=== PATIENT | female | born 1965 | race African-American/Black ===

== ENCOUNTER 2023-03-17 09:39 | Emergency (ER) | payer OTHER, SELFPAY ==
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
[2023-03-17 09:58] VITALS: BP 153/94; PULSE 62; RESP 16; TEMP 35.9; O2SAT 99
== END 2023-03-17 10:59 | disposition home or self-care (01) ==
PROVIDERS: Emergency Provider Nurse Practitioner; PCP Emergency Medicine
DX: M54.2 Cervicalgia (principal); I50.9 Heart failure, unspecified
CPT/HCPCS: 99213; G0463

== ENCOUNTER 2024-12-19 10:06 | Emergency (ER) | payer BC, SELFPAY ==
--- NOTE | ~2024-12-19 | XR_ITS ---
X-rays right ankle X-rays right foot Indication: Swelling and pain Comparison: None Technique: 4 views right ankle, 4 views right foot Findings/Impression: Right ankle: 1. No fracture or dislocation right ankle. 2. Joint effusion. 3. Lateral malleolus soft tissue swelling. Right foot: 1. No fracture, dislocation, or other acute abnormality identified. Reviewed, dictated and finalized at location R.
--- NOTE | 2024-12-19 10:10 | ED_ITS ---
HPI - General Adult General Chief complaint: Extremity Problem,Nontraumatic Stated complaint: pain in right ankle Time Seen by Provider: 12/19/24 10:10 Source: patient Mode of arrival: ambulatory Limitations: no limitations History of Present Illness HPI narrative: 59-year-old female patient presents to the [facility] with complaints of pain to the right ankle for the past 4 days. Denies any recent injury or fall that she is aware of. Patient states the ankle has been swelling, it is painful to walk on and rates her pain about 6/10. Patient states last night she did notice that her toes were feeling tingling and feeling numb. Patient does have history of CHF, high blood pressure but states she did is not good about taking her Lasix every day. Patient is an active smoker. Patient does have history of gout but does take allopurinol daily Related Data Home Medications ?Medication ?Instructions ?Recorded ?Confirmed ?Last Taken ?Type atorvastatin 20 mg tablet mg 03/17/23 Unknown History carvedilol 25 mg tablet mg 03/17/23 Unknown History furosemide 20 mg tablet mg 03/17/23 Unknown History lisinopril 40 mg tablet mg 03/17/23 Unknown History allopurinol 100 mg tablet mg 12/19/24 Unknown History Allergies Allergy/AdvReac Type Severity Reaction Status Date / Time Penicillins Allergy Severe Dyspnea / Verified 12/19/24 10:14 SOB Review of Systems Review of Systems: CONSTITUTIONAL: Denies fever, chills, or sweats. EYES: Denies visual changes, redness, or discharge. ENT: Denies rhinorrhea, congestion, sore throat, or otalgia. CARDIOVASCULAR: Denies chest pain, palpitations, or edema. RESPIRATORY: Denies cough or dyspnea. GASTROINTESTINAL: Denies abdominal pain, nausea, vomiting, or diarrhea. GENITOURINARY: Denies dysuria or hematuria. SKIN: Denies rash or itching. MUSCULOSKELETAL: Denies back pain, joint pain, or myalgia. Positive right ankle pain x4 days NEUROLOGIC: Denies headache, numbness, or weakness. PSYCHIATRIC: Denies anxiety or depression. [facility] Past Medical History Medical History (Updated 12/19/24 @ 11:28 by JEREMIAH Delgado) Gout Asthma CHF (congestive heart failure) Hypertension Surgical History Surgical History (Updated 12/19/24 @ 10:23 by JEREMIAH Delgado) History of bilateral knee replacement H/O tubal ligation Comments At the time of my signature I agree with nursing past medical history, surgical, social, and family history. There is no relevant family history pertinent to the presenting complaint. Exam Narrative: GENERAL: Well-appearing, well-nourished, and in no acute distress. HEAD: Normocephalic, atraumatic. EYES: PERRLA and EOMI. ENT: Nares clear, no rhinorrhea or epistaxis. Mucous membranes moist. NECK: Supple. No lymphadenopathy CHEST: Clear to auscultation. No respiratory distress. HEART: Regular rate and rhythm. No murmur heard. Normal peripheral pulses. ABDOMEN: Soft, nontender, nondistended, normal active bowel sounds. EXTREMITIES: Patient is able to bear weight and ambulate with pain. The R ankle is without obvious asymmetry or deformity when compared to the L ankle. Patient can flex/extend, invert/berta but does have pain. No obvious surface trauma, patient does have slight warmth noted to the lateral side of the right ankle and there is swelling noted to the lateral and medial side of the ankle with some erythema noted. No bony tenderness to palpation over the medial or lateral malleolus. Anterior talofibular ligament, posterior talofibular ligament, calcaneofibular ligament nontender and without swelling. No tenderness or deformity of the midfoot or over the proximal fifth metatarsal. Patient decreased pulses noted to the right foot as compared to the left. The right foot does have a palpable pulse but it not as strong as the left side. Left side is 2+ bounding pulses. Talar tilt test is negative for ligament laxity to valgus or vargus stress. Negative anterior draw. Peroneal nerve is intact with strong eversion and plantar flexion. SKIN: Warm, dry, no rash. NEURO: No focal deficits. Alert and oriented x3. Course Course Level of Care: Express Care Visit Reevaluation(s) Reevaluation #1: Re-evaluated patient notified her that the x-ray is negative for any acute fractures and there is no evidence of gout on the x-ray. Discussed with her I do believe this is most likely a cellulitis infection. Discussed with patient we will discharge her home with an oral antibiotic for suspected cellulitis infection and I would like her to follow up with her primary doctor. Discussed with patient if she develops fevers, body aches, chills or the swelling continues to go up the leg and she needs to go to the ER for further evaluation and treatment. Patient verbalized understanding and denies any other questions or concerns at this time. Date: 12/19/24 Time: 11:34 Vital Signs Vital signs: Vital Signs Temperature 36.3 C L 12/19/24 10:15 Pulse Rate 71 12/19/24 10:15 Respiratory Rate 12/19/24 10:15 Blood Pressure 176/96 H 12/19/24 10:15 Pulse Oximetry 12/19/24 10:15 Oxygen Delivery Room Air 12/19/24 10:15 Temperature 36.3 C L 12/19/24 10:15 Pulse Rate 12/19/24 10:15 Respiratory Rate 12/19/24 10:15 Blood Pressure 176/96 H 12/19/24 10:15 Pulse Oximetry 12/19/24 10:15 Oxygen Delivery Room Air 12/19/24 10:15 Vital signs reviewed. The patient has been informed that they may have pre-hypertension or Hypertension based on a BP reading in the department. I recommend that the patient call the primary care provider listed on their discharge instructions or a physician of their choice this week to arrange follow up for further evaluation of possible pre-hypertension or Hypertension Medical Decision Making MDM Narrative Medical decision making narrative: Plan of care for patient is to x-ray the right ankle and foot to assess for any acute fractures, hairline fractures, any obvious evidence of possible gout. Discussed with her I am concerned she might also have a cellulitis infection as well as I am concerned about blood flow to the foot in which she will need to follow-up with her primary doctor. Encouraged her to be taking Lasix daily to see if this improves. Differential Diagnosis Differential Diagnosis: Differential diagnosis: Foot fracture, crush injury, compartment syndrome, contusion, sprain, tendinitis,lisfranc sprain or fracture, avulsion fracture, grown toenail, diabetic ulcer. Vital Signs Vital Signs: Vital Signs Temperature 36.3 C L 12/19/24 10:15 Pulse Rate 71 12/19/24 10:15 Respiratory Rate 12/19/24 10:15 Blood Pressure 176/96 H 12/19/24 10:15 Pulse Oximetry 100 12/19/24 10:15 Oxygen Delivery Room Air 12/19/24 10:15 Temperature 36.3 C L 12/19/24 10:15 Pulse Rate 71 12/19/24 10:15 Respiratory Rate 20 12/19/24 10:15 Blood Pressure 176/96 H 12/19/24 10:15 Pulse Oximetry 100 12/19/24 10:15 Oxygen Delivery Room Air 12/19/24 10:15 Imaging Data Radiologist's impression: [facility] [address] [place] [address] XRay Report Signed Patient: Joycelyn Lang : 1965 MR#: [id number] Age: 59 Acct:[id number] Loc: [facility] ADM Date: 12/19/24Attending Dr: Ordering Physician: Annabella Izaguirre [employer] Date of Service: 12/19/24 Procedure(s): XR ankle RT min 3V; XR foot RT min 3V Accession Number(s): [id number]; [id number] cc: [facility], Letha Olvera MD; Annabella Izaguirre [employer]~ X-rays right ankle X-rays right foot Indication: Swelling and pain Comparison: None Technique: 4 views right ankle, 4 views right foot Findings/Impression: Right ankle: 1. No fracture or dislocation right ankle. 2. Joint effusion. 3. Lateral malleolus soft tissue swelling. Right foot: 1. No fracture, dislocation, or other acute abnormality identified. Reviewed, dictated and finalized at location R. Please be advised this is a medical document. It is intended for [id number] communication. It is written in medical language and may contain unfamiliar a bbreviations or verbiage. Medical documents are intended to carry relevant information, facts as evident, and the clinical opinion of the practitioner at the time of the encounter. This report may have been done utilizing a voice recognition system. Attempts have been made to correct errors. However, there may be uncorrected grammatical, spelling, and recognition errors present. The file time of this note does not necessarily represent the time of service. Dictated By: Eder Rizvi MD 12/19/24 1105 Signed By: <Electronically signed by Eder Rizvi MD in OV> Critical Care Time Critical Care Time Critical Care Time: No Discharge Plan Discharge Clinical Impression: Cellulitis of right ankle Patient Disposition: Home Condition: Stable Instructions: Antibiotic Form, Cellulitis (ED) Additional Instructions: Take the prescribed antibiotic medicine you are given as directed until it is gone. Take it even if you feel better. It treats the infection and stops it from returning. Not taking all the medicine can make future infections hard to treat. Keep the infected area clean. When possible, raise the infected area above the level of your heart. This helps keep swelling down. May take Tylenol ibuprofen as needed for pain Take your temperature once a day for a week to monitor for fevers. If you do spike a fever please call your doctor right away. Wash your hands often to prevent spreading the infection. In the future, wash your hands before and after you touch cuts, scratches, or bandages. This will help prevent infection. Please call your doctor today and be scheduled for follow-up appointments in regards to being evaluated for vascular disease. When to call your healthcare provider Call your healthcare provider immediately if you have any of the following: Difficulty or pain when moving the joints above or below the infected area Discharge or pus draining from the area Fever of 100.4?F (38?C) or higher, or as directed by your healthcare provider Pain that gets worse in or around the infected Redness that gets worse in or around the infected area, particularly if the area of redness expands to a wider area Shaking chills Swelling of the infected area Vomiting Patient Language: Persian Prescriptions: New clindamycin HCl [Cleocin HCl] 300 mg capsule 300 mg PO Q6H 7 Days Qty: 28 0RF clindamycin HCl [Cleocin HCl] 150 mg capsule 150 mg PO Q6H 7 Days Qty: 28 0RF No Action carvedilol 25 mg tablet atorvastatin 20 mg tablet furosemide 20 mg tablet lisinopril 40 mg tablet allopurinol 100 mg tablet Follow-up/Referrals: Cara,May Monae MD [Primary Care Provider, Unknown] Time of Disposition: 11:29
[2024-12-19 10:15] VITALS: BP 176/96; PULSE 71; RESP 20; TEMP 36.3; O2SAT 100
== END 2024-12-19 11:35 | disposition home or self-care (01) ==
PROVIDERS: Emergency Provider Nurse Practitioner Family; PCP Emergency Medicine
DX: L03.115 Cellulitis of right lower limb (principal); I11.0 Hypertensive heart disease with heart failure; I50.9 Heart failure, unspecified; J45.909 Unspecified asthma, uncomplicated; M10.9 Gout, unspecified; Z96.653 Presence of artificial knee joint, bilateral
CPT/HCPCS: 73610; 73630; 99213; G0463